=== PATIENT | female | born 1975 | race Caucasian/White ===

== ENCOUNTER 2023-03-23 11:17 | Emergency (ER) | payer SELFPAY ==
[2023-03-23 11:27] VITALS: BP 129/63; PULSE 77; RESP 16; TEMP 36.9; O2SAT 97; BMI 30.9
--- NOTE | 2023-03-23 11:53 | DI.RAD.S_ITS ---
PROCEDURE: XR FOOT LT MIN 3V INDICATIONS: remote fx, now atraumatic pain TECHNIQUE: 3 views of the foot were acquired. COMPARISON: None. FINDINGS: Bones: No fractures or dislocations. No suspicious bony lesions. Posterior calcaneal enthesophyte. Soft tissues: No tibiotalar joint effusion. Achilles tendon appears normal. IMPRESSION: No acute osseous abnormality. If pain persists with conservative management, consider repeat x-ray in 10-14 days or cross-sectional imaging. Dictated by: Jimmy Holman M.D. on 03/23/2023 at 12:53 Approved by: Jimmy Holman M.D. on 03/23/2023 at 12:54
--- NOTE | 2023-03-23 12:38 | ED.LOWEXIN ---
HPI - Extremity Injury (Lower) <Serenity Kinney PA-C - Last Filed: 03/23/23 13:41> General Chief Complaint: Extremity Injury, Lower Stated Complaint: can't put pressure on LT foot/HX broken foot 1 yea Time Seen by Provider: 03/23/23 12:13 Source: patient Mode of arrival: Ambulatory History of Present Illness HPI Narrative: 47-year-old female presents to the ED with left foot pain for 1 day. Patient states that she had a prior fractures in that foot from last year, however those healed well and she had no problems until early this morning. Patient states she was awoken from her sleep at 3:30 a.m. this morning with severe left foot pain. Patient states that she has had trouble bearing weight on it due to the pain. Patient had a cane left over from last year's injury, used it to walk today. Patient denies numbness, tingling, weakness. Patient denies any new trauma. Patient does endorse that she has been working a lot more between 80-100 hours a week recently. Related Data Allergies Allergy/AdvReac Type Severity Reaction Status Date / Time No Known Drug Allergies Allergy Verified 03/23/23 11:33 Review of Systems <Serenity Kinney PA-C - Last Filed: 03/23/23 13:41> Review of Systems ROS Unobtainable: All systems reviewed & are unremarkable except as noted in HPI and below Constitutional Constitutional: Denies chills, Denies fatigue, Denies fever(s), Denies frequent falls, Denies lethargy and Denies weakness Eyes Eyes: Denies change in vision, Denies eye discharge, Denies irritation and Denies loss of vision ENT Ears, Nose, Mouth, and Throat: Denies change in voice, Denies dizziness, Denies neck pain, Denies sore throat and Denies throat swelling Cardiovascular Cardiovascular: Denies chest pain, Denies irregular heart rhythm, Denies lightheadedness, Denies palpitations, Denies dyspnea, Denies dyspnea on exertion and Denies orthopnea Respiratory Respiratory: Denies cough, Denies dyspnea, Denies dyspnea on exertion and Denies wheezing Gastrointestinal Gastrointestinal: Denies abdominal pain, Denies change in bowel habits, Denies diarrhea, Denies nausea and Denies vomiting Genitourinary Genitourinary: Denies hematuria, Denies flank pain, Denies urinary incontinence and Denies urinary urgency Musculoskeletal Musculoskeletal: Denies back pain, Denies muscle weakness, Denies neck pain, Denies numbness and Denies tingling Comments: Left foot pain Integumentary/Breasts Skin/Breast: Denies pruritus, Denies erythema, Denies rash and Denies wounds Neurologic Neurologic: Denies behavioral changes, Denies confusion, Denies dizziness, Denies frequent falls, Denies loss of vision, Denies numbness, Denies tingling and Denies weakness Psychiatric Psychiatric: Denies anxiety, Denies behavioral changes, Denies confusion, Denies depression, Denies homicidal ideation and Denies suicidal ideation Endocrine Endocrine: Denies fatigue, Denies flushing and Denies palpitations Hematologic/Lymphatic Hematologic/Lymphatic: Denies easy bruising Allergic/Immunologic Allergic/Immunologic: Denies urticaria, Denies throat swelling and Denies wheezing Patient History <Serenity Kinney PA-C - Last Filed: 03/23/23 13:41> Social History Smoking Status: Current every day smoker Smoking Status: Current every day smoker tobacco type: cigarettes Substance Use Type: marijuana Exam <Serenity Kinney PA-C - Last Filed: 03/23/23 13:41> Narrative Exam Narrative: Const General:?cooperative, healthy appearing and comfortable [facility] Head:?normal to inspection Ears:?hearing grossly normal bilaterally Nose:?external nose normal Face and sinus:?normal facial exam and sinuses nontender Mouth:?oral mucosae normal Throat:?posterior oropharynx normal Eyes General:?appearance normal, both eyes and all related structures Neck Neck:?normal visual inspection and no lymphadenopathy noted Resp Effort & Inspection:?normal respiratory effort Auscultation:?clear to auscultation bilaterally Cardio Rate:?regular rate Rhythm:?regular rhythm Musculoskeletal No deformities or bruising. There is some tenderness to palpation of the lateral side of the foot. There is full range of motion. Strength and sensation is intact. Neuro General:?patient alert, patient awake and patient oriented x3 Initial Vital Signs Initial Vital Signs: Vital Signs Temperature 98.5 F 03/23/23 11:27 Pulse Rate 77 03/23/23 11:27 Respiratory Rate 16 03/23/23 11:27 Blood Pressure 129/63 03/23/23 11:27 Pulse Oximetry 97 03/23/23 11:27 Oxygen Delivery Method Room Air 03/23/23 11:27 <DO Kristina Shaver Last Filed: 03/23/23 13:42> Initial Vital Signs Initial Vital Signs: Vital Signs Temperature 98.5 F 03/23/23 11:27 Pulse Rate 77 03/23/23 11:27 Respiratory Rate 16 03/23/23 11:27 Blood Pressure 129/63 03/23/23 11:27 Pulse Oximetry 97 03/23/23 11:27 Oxygen Delivery Method Room Air 03/23/23 11:27 Course <Serenity Kinney PA-C - Last Filed: 03/23/23 13:41> Orders Ordered: ED Orders 03/23/23 11:53 XR foot LT min 3V Stat Vital Signs Vital signs: Vital Signs - 8 hr 03/23/23 11:27 03/23/23 13:07 Temperature 98.5 F Pulse Rate 77 63 Respiratory Rate 16 18 Blood Pressure 129/63 111/56 L Pulse Oximetry 97 99 Oxygen Delivery Method Room Air Room Air <DO Kristina Shaver Last Filed: 03/23/23 13:42> Orders Ordered: ED Orders 03/23/23 11:53 XR foot LT min 3V Stat Vital Signs Vital signs: Vital Signs - 8 hr 03/23/23 11:27 03/23/23 13:07 Temperature 98.5 F Pulse Rate 77 63 Respiratory Rate 16 18 Blood Pressure 129/63 111/56 L Pulse Oximetry 97 99 Oxygen Delivery Method Room Air Room Air MDM - Extremity Injury (Lower) <GT Orozco Last Filed: 03/23/23 13:41> MDM Narrative Medical decision making narrative: 47-year-old female presents to the ED with left foot pain for 1 day. Patient states that she had a prior fractures in that foot from last year, however those healed well and she had no problems until early this morning. Concern for fracture/dislocation versus musculoskeletal sprain/strain versus other. Will obtain x-rays, reassess. X-rays do not show any fractures or dislocations. Patient's symptoms are likely due to a musculoskeletal sprain/strain. Recommend RICE, Tylenol, ibuprofen for symptoms. Recommend follow-up with PCP, Podiatry. ED return precautions discussed with patient. Patient verbalized understanding. Medical records reviewed: Yes Discharge Plan Departure Patient Disposition: Home Clinical Impression: Foot pain Instructions: DI for Foot Pain Activity Restrictions/Additional Instructions: You were evaluated in the ED today for foot pain. Your x-ray shows no fractures or dislocations. Your symptoms are likely due to a musculoskeletal sprain/strain from overuse. 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 You may rest the injury, elevate foot above heart level, apply heat for the 1st 24 hours, and then apply heat packs. You may take Tylenol and ibuprofen for pain. Return to the ED if you experience numbness, tingling, weakness, worsening symptoms. Referrals: Miscellaneous,Doctor, [Primary Care Provider] - Stand Alone Forms: Patient Portal/API <Basilio Stanton DO - Last Filed: 03/23/23 13:42> Cosign ED Attending Cosignature Attestation: Dr Stanton Co-Sign Statement: I was available for consultation during this patient's emergency department visit. This chart is signed by myself for administrative purposes only. I did not have direct contact with this patient during this visit. They were seen independently by the APC.
[2023-03-23 13:07] VITALS: BP 111/56; PULSE 63; RESP 18; O2SAT 99
== END 2023-03-23 13:11 | disposition home or self-care (01) ==
PROVIDERS: Emergency Provider Student in an Organized Health Care Education/Training Program
DX: M79.672 Pain in left foot (principal)
CPT/HCPCS: 73630; 99281; 99283